=== PATIENT | male | born 2000 | race Caucasian/White ===

== ENCOUNTER 2020-03-15 17:17 | Emergency (ER) | payer MEDICAID ==
[~2020-03-15] VITALS: Ht 177.8 cm; Wt 122.0 kg
[2020-03-15 17:21] VITALS: BP 151/88
[2020-03-15] MEDS ORDERED: ACETAMINOPHEN 325MG TABLET PO STA (20:23)
== END 2020-03-15 21:43 | disposition home or self-care (01) ==
LOC: ER 17:17
DX: S20.211A Contusion of right front wall of thorax, initial encounter (principal); V43.62XA Car passenger injured in collision with other type car in traffic accident, initial encounter; Y93.9 Activity, unspecified; Y92.488 Other paved roadways as the place of occurrence of the external cause
CPT/HCPCS: 71101; 99283